=== PATIENT | male | born 1960 | race Caucasian/White ===

== ENCOUNTER 2018-05-21 06:01 | Day surgery (SDC) | payer OTHER ==
[2018-05-14 09:06] LABS: URINE BILIRUBIN NEGATIVE (Negative); URINE BLOOD NEGATIVE (Negative); URINE CLARITY CLEAR; URINE COLOR YELLOW; URINE GLUCOSE-RANDOM* NEGATIVE (Negative); URINE KETONES NEGATIVE (Negative); URINE LEUKOCYTES-REFLEX NEGATIVE (Negative); URINE NITRITE-REFLEX NEGATIVE (Negative); URINE PROTEIN (DIPSTICK) NEGATIVE (Negative); URINE SPECIFIC GRAVITY >= 1.030 (1.005-1.035); URINE UROBILINOGEN 0.2 E.U./dl (0.2-1.0)
[2018-05-14 09:21] LABS: HEMATOCRIT 43.5 % (42.0-52.0); HEMOGLOBIN 14.9 gm/dL (14.0-18.0); MCH 30.8 pg (26.0-34.0); MCHC 34.2 g/dL (28.0-37.0); MCV 90.2 fL (80.0-100.0); RBC 4.82 mil/uL (4.50-6.00); RDW 13.1 % (10.5-14.5); WBC 6.1 thou/uL (4.0-11.0)
[2018-05-14 09:28] LABS: ALBUMIN 3.7 g/dL (3.4-5.0); CALCIUM 8.8 mg/dL (8.5-10.1); CREATININE 0.9 mg/dL (0.7-1.3); POTASSIUM 4.1 mmol/L (3.5-5.1)
[2018-05-14 09:35] LABS: PROTIME 10.4 Seconds (9.3-11.4)
[2018-05-14 23:11] LABS: GLYCOHEMOGLOBIN (HGB A1C) 6.4 % (4.8-5.6)
--- NOTE | 2018-05-15 04:53 | EKG ---
[address] [place] [address] ELECTROCARDIOGRAM REPORT Name: HEATHER MEADE Room #: [facility]#: [id number] ������������������ Admission: ������������������ Attend Phys: Nico Hinton MD Discharge: ������������������ Date of : 58 Report #: [id number] ����������������������������������������������������������������� [id number] THIS REPORT FOR: //name// [facility] Test Date: 2018-05-14 Test Time: 09:16:03 Pat Name: HEATHER BRIZUELASAMRAMicki Department: Room: Gender: [employer]: [facility] : 1960 Requested By: Nico Hinton Order Number: [id number] MD: Barrett Zhou Measurements Intervals [place] Rate: 60 P: 22 OR: 196 QRS: 43 QRSD: 115 T: 27 QT: 415 QTc: 415 Interpretive Statements Sinus rhythm Nonspecific intraventricular conduction delay Inferior q waves noted poor R wave progression No previous ECG available for comparison Electronically Signed On 05-15-2018 4:53:47 [employer] PROJECT MANAGER by Barrett Zhou [email or web address] ��������������������������������������������� <ELECTRONICALLY SIGNED> ���������������������������������������� By: Barrett Zhou MD ��������������������������������������������� 05/15/18 0453 0916 5 Barrett Zhou MD /DIONNE
[~2018-05-21] VITALS: Ht 180.3 cm; Wt 136.1 kg
[~2018-05-21 06:01] MED LIST: ALEVE220 MG PO; AMARYL2 MG PO; ASPIR 8181 MG PO; LISINOPRIL-HCT1 EAC2 PO; MULTI VITAMIN1 EACH PO; PEPCID AC10 MG PO; SIMVASTATIN40 MG PO
[2018-05-21 12:00] VITALS: BP 125/85
[2018-05-21 17:18] VITALS: BP 173/94
[2018-05-21 19:23] VITALS: BP 131/84
--- NOTE | 2018-05-21 19:51 | NUR ---
ASSUMED CARE AT 1600, SHIFT ASSESSMENT DONE, MEDS GIVEN, VSS. REPORTED PAIN TO LEFT KNEE, 5/10. DID NOT WANT ANT PAIN MEDS. SCDs ON, TEDs ON THE RIGHT KNEE. WILL CONTINUE TO ASSESS AND ASSIST WITH ADLs NEEDED.
--- NOTE | 2018-05-22 02:34 | NUR ---
Assumed care of pt at 1900. Pt alert and oriented x4. Dressing on left knee clean and intact. Able to ambulate to the restroom SBA. Call light within reach. Will continue to monitor and assist with needs.
[2018-05-22 05:16] VITALS: BP 111/64
[2018-05-22 05:46] LABS: HEMOGLOBIN 13.6 gm/dL (14.0-18.0); MCH 29.9 pg (26.0-34.0); MCHC 33.3 g/dL (28.0-37.0); RBC 4.56 mil/uL (4.50-6.00); RDW 13.1 % (10.5-14.5); WBC 18.6 thou/uL (4.0-11.0)
[2018-05-22 08:10] VITALS: BP 117/74
--- NOTE | 2018-05-22 09:15 | O ---
[facility] [place] [address] [place] [address] OPERATIVE REPORT Name: HEATHER MEADE Room #: 421-P [facility]..#: [id number] Admission: 05/21/18 ������������������ Attend Phys: Nico Hinton MD Discharge: ������������������ Date of : 58 Report #: [id number] THIS REPORT FOR: //name// CC: Jaylen Beverly Nico Hinton DATE OF SERVICE: 05/21/2018 PREOPERATIVE DIAGNOSIS: Left knee osteoarthritis. POSTOPERATIVE DIAGNOSIS: Left knee osteoarthritis. PROCEDURE: Left total knee arthroplasty with NAVIO robotic acute care assistant. SURGEON: Nico Hinton MD. EXECUTIVE ADMINISTRATIVE ASST: Lisa Ferrell PA-C INDICATION FOR EXECUTIVE ADMINISTRATIVE ASST: Throughout the case extensive retraction and manipulation of the knee was required. This was afforded to me by my acute care assistant. ANESTHESIA: General endotracheal with an adductor canal block. IMPLANTS: [employer]hew size 7 Journey II BCS Oxinium femur, a size 5 tibia, size 10 polyethylene and size 38 patella. TOURNIQUET TIME: 72 minutes. ESTIMATED BLOOD LOSS: 25 mL. COMPLICATIONS: None. SPECIMENS: None. CONDITION UPON LEAVING THE OPERATING ROOM: Stable. INDICATIONS FOR PROCEDURE: The patient is a 57-year-old gentleman with severe left knee osteoarthritis. He had failed conservative measures for this and after discussion with him, he elected for left total knee arthroplasty. DESCRIPTION OF PROCEDURE: Risks, benefits, alternatives, complications were discussed in detail with the patient including but not limited to risk of anesthesia, risk of damage to nerves, arteries, blood vessels, risk for infection, bleeding, risk for continued knee pain, need for reoperation. Informed consent was obtained from the patient. Left knee was appropriately marked in the preoperative holding area. IV Ancef was given for preoperative [facility] [address] [place] [address] OPERATIVE REPORT Name: HEATHER MEADE [id number] Admission: 05/21/18 ������������������ Attend Phys: Nico Hinton MD Discharge: ������������������ Date of : 58 Report #: [id number]. He was brought to the operating room and placed in supine position on operating room table. General endotracheal anesthesia was induced without complication. Tourniquet was placed on the left thigh. Left lower extremity was prepped and draped in normal sterile fashion. Timeout was performed properly identifying the patient and procedure as well as the instrumentation and implants. All in the operating room were in agreement. Left lower extremity was exsanguinated, tourniquet was inflated. Tourniquet time was 72 minutes. Standard midline approach to knee was made with 10 blade through the skin. Dissection was taken down sharply to the fascia and deep flaps were developed medially and laterally. Fresh 10 blade was used to make a medial parapatellar arthrotomy and the knee was inspected. There was moderate to severe tricompartmental osteoarthritis. It was decided to proceed with total knee arthroplasty. ACL and PCL were removed sharply. Reference pins were placed in the femur and the tibia and the knee was then visually mapped using the NAVIO robotic system. Intraoperative plan was made and we sized a size 7 femur and a size 5 tibia. This was with a 10 flexion and extension gap. After acceptance of the intraoperative plan, the distal femoral cut was made with a NAVIO bur. The femoral cutting block was then pinned in place and the chamfer cuts were made on the femur. After this, the knee was flexed, tibia subluxed anteriorly. Remainder of the menisci removed with Bovie cautery. Tibial resection was then made using the [employer] system for placement of the tibial resection guide. After this, flexion and extension gaps were checked and found to have good balance in flexion and extension both medially and laterally. After this, tibia was sized, found to be a size 5. A size 5 tibial trial was placed, pinned and punched. A size 7 femoral trial was placed and the box cut was made. This was then trialed with a size 9 and then a size 10 polyethylene, the size 10 polyethylene had a millimeter gap medially and laterally throughout range of motion both manually as well as digitally. After this, 9 mm was taken off the posterior surface of the patella and a size 38 patellar trial button was placed. Knee was taken through range of motion, found to be stable, found to have good patellar tracking. After this, trial components were removed. Bony ends were thoroughly irrigated with normal saline. Final size 5 tibia, size 7 Journey II BCS posterior stabilized Oxinium femur and a size 38 patella were cemented in place using standard cementation techniques. While the cement cured, a periarticular injection consisting of morphine, ropivacaine, epinephrine and Toradol was placed around the knee joint capsule. After the cement cured, tourniquet was deflated. Hemostasis obtained with Bovie cautery. Final size 10 polyethylene was placed. A gram of vancomycin was placed deep in the joint. The fascia was closed with 0 Vicryl, skin was closed with 2-0 Vicryl, 3-0 Monocryl, Dermabond and a PHIL dressing was applied. The patient tolerated this procedure well and went to recovery room under care of Anesthesia postoperatively. ��������������������������������������������� <ELECTRONICALLY SIGNED> ���������������������������������������� By: Nico Hinton MD ��������������������������������������������� 05/22/18 0915 [id number] [id number] Nico Hinton MD /nt
[2018-05-22] MEDS ORDERED: NEURONTIN 300300 M1 PO (09:54)
[2018-05-22] MEDS ORDERED: TRI-BUFFERED A325 M1 PO (09:54)
[2018-05-22 11:27] VITALS: BP 117/74
--- NOTE | 2018-05-22 12:33 | NUR ---
INITIAL ASSESSMENT: Pt evaluated for d/c planning needs. Reviewed chart and spoke with nurse, pt and spouse. Pt is alert and oriented. Pt was independent with ADL's prior to admission to the hospital and is employed. Pt has walker for home use. Pt has not had home health in the past. Pt plans on returning home on d/c from hospital and has made arrangements for outpatient PT. No other needs identified. Will remain available to assist as needed.
--- NOTE | 2018-05-22 15:01 | NUR ---
Assumed pt care at 7am.Pt in and out of bed with assist and walker to bathroom.Assessment completed.vss.Pt tolerated meds and diet.Lisa SOLIMAN here to see pt.Dc order noted.Pt ambulated in hallways with therapist and also practice walking on staircases.Dc summary compiled and reviewed with pt.Rx and dc summary copy given prior to dc home at 1500 with in wc.
== END 2018-05-22 15:45 | disposition home or self-care (01) ==
LOC: OR 06:01 → TBA 06:15 → PRE 08:54 → EDSTATUS 09:27 → OR 09:29 → PRE 12:48 → 4E 17:04 → ENTRNSPT 05-22 14:37 → EDTRNSPTSTS 05-22 14:41 → OR 05-22 15:45
PROVIDERS: Orthopaedic Surgery
DX: M17.12 Unilateral primary osteoarthritis, left knee (principal); Z79.899 Other long term (current) drug therapy; Z79.01 Long term (current) use of anticoagulants
CPT/HCPCS: 10783; 50010; 50101; 50415; 50954; 51130; 51225; 53000; 53078; 54118; 55372; 56527; 56528; 57095; 57103; 57109; 57110; 57113; 57127; 62110; 62900; 64039; 70005